=== PATIENT | male | born 1995 | race Caucasian/White ===

== ENCOUNTER 2022-02-28 20:41 | Emergency (ER) | payer BC, OTHER ==
[2022-02-28 20:55] VITALS: BP 181/97; PULSE 98
== END 2022-02-28 22:07 | disposition home or self-care (01) ==
LOC: JD.ED 20:41
DX: S92.154A Nondisplaced avulsion fracture (chip fracture) of right talus, initial encounter for closed fracture (principal); J45.909 Unspecified asthma, uncomplicated; Z88.0 Allergy status to penicillin; Z87.891 Personal history of nicotine dependence; X50.9XXA Other and unspecified overexertion or strenuous movements or postures, initial encounter
CPT/HCPCS: 73610-26-RT; 73610-RT; 73620-26-RT; 73620-RT; 99283

== ENCOUNTER 2023-05-29 20:38 | Emergency (ER) | payer BC ==
[2023-05-29] MEDS ORDERED: Glucagon,Human Recombinant 1 MG Vial IVPUSH ONE (22:50)
[2023-05-29] MEDS ORDERED: LORazepam 2 MG/ML SDV IVPUSH ONE (22:52)
[2023-05-29 23:55] VITALS: BP 145/85; PULSE 80
== END 2023-05-30 00:01 | disposition home or self-care (01) ==
LOC: JD.ED 20:38
DX: K22.2 Esophageal obstruction (principal); J45.909 Unspecified asthma, uncomplicated; F17.210 Nicotine dependence, cigarettes, uncomplicated; Z88.0 Allergy status to penicillin; Z79.899 Other long term (current) drug therapy
CPT/HCPCS: 71250; 96374; 96375; 99284; J1610; J2060